=== PATIENT | male | born 1955 | race Caucasian/White ===

== ENCOUNTER 2023-09-18 12:24 | Inpatient (IN) | payer MEDICAID ==
[~2023-09-18] VITALS: Ht 165.1 cm; Wt 64.1 kg
[2023-09-18 12:54] VITALS: O2SAT 97
[2023-09-18 13:37] LABS: BASOPHILS # (AUTO) 0.1 K/uL (0.0-0.2); BASOPHILS % (AUTO) 1.1 % (0.0-2.0); EOSINOPHILS # (AUTO) 0.1 K/uL (0.0-0.7); EOSINOPHILS % (AUTO) 1.1 % (0.0-6.0); HEMATOCRIT 24 % (39-51); HEMOGLOBIN 7.1 g/dL (13.5-17.5); LYMPHOCYTES # (AUTO) 2.1 K/uL (0.8-4.8); LYMPHOCYTES % (AUTO) 27.2 % (20.0-44.0); MEAN CORPUSCULAR HEMOGLOBIN 20 PG (26.0-33.0); MEAN CORPUSCULAR HGB CONC 30 g/dl (31.0-36.0); MEAN CORPUSCULAR VOLUME 66 fL (80-96); MONOCYTES # (AUTO) 0.6 K/uL (0.1-1.30); MONOCYTES % (AUTO) 8.4 % (2.0-12.0); NEUTROPHILS # (AUTO) 4.7 K/uL (1.8-8.9); NEUTROPHILS % (AUTO) 62.2 % (43.0-81.0); PLATELET COUNT (AUTO) 385 K/uL (150-450); RED BLOOD CELL COUNT(AUTO) 3.62 MIL/uL (4.5-6.0); RED CELL DISTRIBUTION WIDTH 24.9 % (11.5-15.0); WHITE BLOOD COUNT (AUTO) 7.6 K/uL (4.3-11.0)
[2023-09-18 13:54] LABS: CALCIUM, SERUM 8.6 mg/dL (8.5-10.1); CARBON DIOXIDE 30 mmol/L (21-32); CHLORIDE 103 mmol/L (98-107); CREATININE 0.6 mg/dL (0.6-1.3); GLUCOSE 89 mg/dL (74-106); POTASSIUM 4.1 mmol/L (3.5-5.1); SODIUM SERUM 139 mmol/L (136-145); UREA NITROGEN, BLOOD 10 mg/dL (7-18)
[2023-09-18 14:11] LABS: NT-PRO BNP 109 pg/mL (0-125)
[2023-09-18] MEDS ORDERED: Z GUARD REMEDY 4 OZ OINT TP PRN (15:00)
[2023-09-18] MEDS ORDERED: ONDANSETRON HCL/PF 4 MG/2 ML VIAL IVP PRN (15:00)
[2023-09-18] MEDS ORDERED: ACETAMINOPHEN 325 MG TABLET PO PRN (15:00)
[2023-09-18] MEDS ORDERED: MAG HYDROX/AL HYDROX/SIMETH 30 ML UDC PO PRN (15:00)
[2023-09-18] MEDS ORDERED: ZOLPIDEM TARTRATE 5 MG TABLET PO PRN (15:00)
[2023-09-18 18:00] VITALS: BP 145/96; TEMP 97.5; O2SAT 95
[2023-09-18 20:00] VITALS: BP 122/87; TEMP 97.6; O2SAT 96
[2023-09-19] VITALS: BP 128/78; TEMP 97.6; O2SAT 95
[2023-09-19] MEDS: IV NS 0.9% 1,000 ML BAG IV PRN (03:23)
[2023-09-19 04:00] VITALS: BP 112/75; TEMP 97.8; O2SAT 98
[2023-09-19 06:40] LABS: BASOPHILS # (AUTO) 0.1 K/uL (0.0-0.2); BASOPHILS % (AUTO) 0.8 % (0.0-2.0); EOSINOPHILS # (AUTO) 0.1 K/uL (0.0-0.7); EOSINOPHILS % (AUTO) 1.2 % (0.0-6.0); HEMATOCRIT 27 % (39-51); HEMOGLOBIN 7.9 g/dL (13.5-17.5); LYMPHOCYTES # (AUTO) 1.4 K/uL (0.8-4.8); LYMPHOCYTES % (AUTO) 18.7 % (20.0-44.0); MEAN CORPUSCULAR HEMOGLOBIN 19 PG (26.0-33.0); MEAN CORPUSCULAR HGB CONC 30 g/dl (31.0-36.0); MEAN CORPUSCULAR VOLUME 65 fL (80-96); MONOCYTES # (AUTO) 0.5 K/uL (0.1-1.30); MONOCYTES % (AUTO) 7.1 % (2.0-12.0); NEUTROPHILS # (AUTO) 5.4 K/uL (1.8-8.9); NEUTROPHILS % (AUTO) 72.2 % (43.0-81.0); PLATELET COUNT (AUTO) 394 K/uL (150-450); RED BLOOD CELL COUNT(AUTO) 4.11 MIL/uL (4.5-6.0); RED CELL DISTRIBUTION WIDTH 25.1 % (11.5-15.0); WHITE BLOOD COUNT (AUTO) 7.5 K/uL (4.3-11.0)
[2023-09-19 07:09] LABS: CALCIUM, SERUM 8.4 mg/dL (8.5-10.1); CREATININE 0.6 mg/dL (0.6-1.3); MAGNESIUM 1.9 mg/dL (1.8-2.4); PHOSPHORUS 3.4 mg/dL (2.5-4.9); POTASSIUM 4.3 mmol/L (3.5-5.1)
[2023-09-19 08:00] VITALS: BP 128/92; TEMP 97.7; O2SAT 94
[2023-09-19] MEDS: PANTOPRAZOLE 40 MG VIAL IV SCH (08:47)
[2023-09-19 09:54] LABS: IRON, SERUM 11 ug/dl (50-175); TOTAL IRON BINDING CAPACITY 447 ug/dl (250-450)
[2023-09-19 10:12] LABS: CHOLESTEROL 150 mg/dL (<200); FERRITIN 8 ng/mL (8-388); HDL CHOLESTEROL 60 mg/dL (40-60); LDL 82 mg/dL (0-99); TRIGLYCERIDES 58 mg/dL (30-150)
[2023-09-19 12:00] VITALS: BP 141/82; TEMP 98.1; O2SAT 96
[2023-09-19 16:00] VITALS: BP 114/78; TEMP 98.2; O2SAT 94
[2023-09-19 20:00] VITALS: BP 122/84; TEMP 98.1; O2SAT 94
[2023-09-19] MEDS: MAGNESIUM HYDROXIDE 30 ML UDC PO PRN (23:39)
[2023-09-20] VITALS: BP 126/86; TEMP 98.1; O2SAT 94
[2023-09-20 04:00] VITALS: BP 116/89; TEMP 98.1; O2SAT 94
[2023-09-20 06:55] LABS: BASOPHILS # (AUTO) 0.1 K/uL (0.0-0.2); BASOPHILS % (AUTO) 0.9 % (0.0-2.0); EOSINOPHILS # (AUTO) 0.1 K/uL (0.0-0.7); EOSINOPHILS % (AUTO) 1.1 % (0.0-6.0); HEMATOCRIT 28 % (39-51); HEMOGLOBIN 8.6 g/dL (13.5-17.5); LYMPHOCYTES # (AUTO) 2.7 K/uL (0.8-4.8); LYMPHOCYTES % (AUTO) 24.9 % (20.0-44.0); MEAN CORPUSCULAR HEMOGLOBIN 20 PG (26.0-33.0); MEAN CORPUSCULAR HGB CONC 31 g/dl (31.0-36.0); MEAN CORPUSCULAR VOLUME 66 fL (80-96); MONOCYTES # (AUTO) 0.6 K/uL (0.1-1.30); MONOCYTES % (AUTO) 5.7 % (2.0-12.0); NEUTROPHILS # (AUTO) 7.2 K/uL (1.8-8.9); NEUTROPHILS % (AUTO) 67.4 % (43.0-81.0); PLATELET COUNT (AUTO) 421 K/uL (150-450); RED BLOOD CELL COUNT(AUTO) 4.28 MIL/uL (4.5-6.0); WHITE BLOOD COUNT (AUTO) 10.7 K/uL (4.3-11.0)
[2023-09-20 07:13] LABS: BILIRUBIN,TOTAL 0.5 mg/dL (0.2-1.0); CALCIUM, SERUM 9.1 mg/dL (8.5-10.1); CREATININE 0.8 mg/dL (0.6-1.3); MAGNESIUM 2.3 mg/dL (1.8-2.4); PHOSPHORUS 3.3 mg/dL (2.5-4.9); POTASSIUM 3.9 mmol/L (3.5-5.1); TOTAL PROTEIN, SERUM 7.9 g/dL (6.4-8.2)
[2023-09-20 07:30] VITALS: BP 125/83; TEMP 98.9; O2SAT 94
[2023-09-20] MEDS ORDERED: IV NS 0.9% 1,000 ML IV PRN (10:00)
[2023-09-20 10:04] LABS: OCCULT BLOOD STOOL NEGATIVE (NEGATIVE)
[2023-09-20] MEDS ORDERED: PANT40TA2 PO (11:28)
[2023-09-20] MEDS ORDERED: FERR220S2 PO (11:28)
[2023-09-20] MEDS: SOD FERRIC GLUC 125 MG in IV NS 0.9% 100 ML IV SCH (14:25)
[2023-09-20] MEDS ORDERED: ALBU18HF2 INH (14:46)
== END 2023-09-20 16:00 | disposition home or self-care (01) | DRG 663 ==
LOC: ER 12:24 → TELE 16:48 → MED 09-20 15:51
DX: D50.9 Iron deficiency anemia, unspecified (principal); I10 Essential (primary) hypertension; J45.909 Unspecified asthma, uncomplicated
CPT/HCPCS: 36415; 71045-TC; 80048-TC; 80053-TC; 80061-TC; 82272-TC; 82728-TC; 83540-TC; 83735-TC; 83880; 84100-TC; 84484-TC; 85025-TC; 86850-TC; 93307-TC; 93970-TC; A4223; G0378; J2916; J7030